=== PATIENT | female | born 1940 | race Caucasian/White ===

== ENCOUNTER 2017-04-07 08:33 | Day surgery (SDC) | payer OTHER ==
--- NOTE | ~2017-04-07 | EGD ---
EGD REPORT [facility] [address] [place] [address] NAME: BRITTANY SORIA : [birth year] STATUS : REG [facility] PAT#: [id number] AGE: 76 ADM/REG DATE : 04/07/17 MR#: [id number] REPORT SERV DATE: 04/07/17 DICTATED BY: CAROL BORJA DATE: 04/07/17 REPORT STATUS : Draft [facility]ANS[facility]: [facility] DATE: 04/07/17 Endoscopy Center Patient Name: Brittany Soria Date of : 1940 Attending MD: CAROL BORJA MD Procedure Date No Time: 04/07/2017 Procedure: Colonoscopy Indications: Personal history of malignant neoplasm of the breast, Weight loss Referring MD: Yakelin Moran Medicines: Propofol per Anesthesia Complications: No immediate complications. Estimated blood loss: None. Procedure: Pre-Anesthesia Assessment: - After reviewing the risks and benefits, the patient was deemed in satisfactory condition to undergo the procedure. - Prior to the procedure, a History and Physical was performed, and patient medications and allergies were reviewed. The patient's tolerance of previous anesthesia was also reviewed. The risks and benefits of the procedure and the sedation options and risks were discussed with the patient. All questions were answered, and informed consent was obtained. Prior Anticoagulants: The patient has taken no previous anticoagulant or antiplatelet agents. ASA Grade Assessment: III - A patient with severe systemic disease. After reviewing the risks and benefits, the patient was deemed in satisfactory condition to undergo the procedure. After I obtained informed consent, the scope was passed under direct vision. Throughout the procedure, the patient's blood pressure, pulse, and oxygen saturations were monitored continuously. The CF [id number] was introduced through the anus and advanced to the cecum, identified by appendiceal orifice and ileocecal valve. The colonoscopy was performed without difficulty. The appendiceal orifice was photographed. The patient tolerated the procedure well. The quality of the bowel preparation was adequate. The bowel preparation used was an extended prep with SUPREP and magnesium citrate. Scope withdrawal time was greater than 9 minutes. Findings: The perianal and digital rectal examinations were normal. Pertinent negatives include normal sphincter tone. Non-bleeding internal hemorrhoids were found during retroflexion and EGD REPORT [address] [address] NAME: BRITTANY SORIA : [birth year] STATUS : REG [facility] PAT#: [id number] AGE: 76 ADM/REG DATE : 04/07/17 MR#: [id number] REPORT SERV DATE: 04/07/17 DICTATED BY: CAROL BORJA DATE: 04/07/17 REPORT STATUS : Draft TRANSCRIBED BY: [employer] DATE: 04/07/17 were small and Grade I (internal hemorrhoids that do not prolapse). A few small-mouthed diverticula were found in the sigmoid colon. The exam was otherwise without abnormality. Impression: - Non-bleeding internal hemorrhoids. - Mild diverticulosis in the sigmoid colon. - The examination was otherwise normal. Recommendation: - Discharge patient to home (ambulatory). - Return to previous diet. - Continue present medications. - Repeat colonoscopy will not be performed due to advanced age. - Return to GI clinic PRN. - Patient has a contact number available for emergencies. The signs and symptoms of potential delayed complications were discussed with the patient. Return to normal activities tomorrow. Written discharge instructions were provided to the patient. Procedure Code(s): --- Professional --- 90573, Colonoscopy, flexible, proximal to splenic flexure; diagnostic, with or without collection of specimen(s) by brushing or washing, with or without colon decompression (separate procedure) Diagnosis Code(s): --- Professional --- K64.0, First degree hemorrhoids K57.30, Diverticulosis of large intestine without perforation or abscess without bleeding Z85.3, Personal history of malignant neoplasm of breast R63.4, Abnormal weight loss CPT copyright 2013 [employer]. All rights reserved. The codes documented in this report are preliminary and upon cpc review may be revised to meet current compliance requirements. CAROL BORJA MD 04/07/2017 11:52 AM This report has been signed electronically. Number of Addenda: 0 Note Initiated On: 04/07/2017 11:09 AM Scope Withdrawal Time 0 hours 9 minutes 12 seconds EGD REPORT [facility] [address] [address] NAME: BRITTANY SORIA : [birth year] STATUS : REG [facility] PAT#: [id number] AGE: 76 ADM/REG DATE : 04/07/17 MR#: [id number] REPORT SERV DATE: 04/07/17 DICTATED BY: CAROL BORJA. DATE: 04/07/17 REPORT STATUS : Draft TRANSCRIBED BY: [employer] DATE: 04/07/17 [address] [address]
--- NOTE | ~2017-04-07 | EGD ---
EGD REPORT [facility] [address] [address] NAME: BRITTANY SORIA : [birth year] STATUS : REG [facility] [place] PAT#: [id number] AGE: 76 ADM/REG DATE : 04/07/17 MR#: [id number] REPORT SERV DATE: 04/07/17 DICTATED BY: CAROL BORJA DATE: 04/07/17 REPORT STATUS : Draft [facility]: [facility] DATE: 04/07/17 Endoscopy Center Patient Name: Brittany Soria Date of : 1940 Attending MD: CAROL BORJA MD Procedure Date No Time: 04/07/2017 Procedure: Upper GI endoscopy Indications: Epigastric abdominal pain, Gastro-esophageal reflux disease Referring MD: Yakelin Moran Medicines: Propofol per Anesthesia Complications: No immediate complications. Estimated blood loss: None. Procedure: Pre-Anesthesia Assessment: - After reviewing the risks and benefits, the patient was deemed in satisfactory condition to undergo the procedure. - Prior to the procedure, a History and Physical was performed, and patient medications and allergies were reviewed. The patient's tolerance of previous anesthesia was also reviewed. The risks and benefits of the procedure and the sedation options and risks were discussed with the patient. All questions were answered, and informed consent was obtained. Prior Anticoagulants: The patient has taken no previous anticoagulant or antiplatelet agents. ASA Grade Assessment: III - A patient with severe systemic disease. After reviewing the risks and benefits, the patient was deemed in satisfactory condition to undergo the procedure. After obtaining informed consent, the endoscope was passed under direct vision. Throughout the procedure, the patient's blood pressure, pulse, and oxygen saturations were monitored continuously. The GIF [id number] was introduced through the mouth, and advanced to the third part of duodenum. The upper GI endoscopy was accomplished without difficulty. The patient tolerated the procedure well. Findings: Diffuse moderate erythema was found in the lower third of the esophagus. Diffuse moderate inflammation characterized by congestion (edema) and granularity was found in the gastric antrum. Biopsies were taken with a cold forceps for histology. Estimated blood loss: none. The gastroesophageal junction (on retroflexion) was normal. The examined duodenum was normal. EGD REPORT [address] [address] NAME: BRITTANY SORIA : [birth year] STATUS : REG [facility] [place] PAT#: [id number] AGE: 76 ADM/REG DATE : 04/07/17 MR#: [id number] REPORT SERV DATE: 04/07/17 DICTATED BY: CAROL BORJA DATE: 04/07/17 REPORT STATUS : Draft TRANSCRIBED BY: [employer] DATE: 04/07/17 Impression: - Erythema in the lower third of the esophagus. - Bile gastritis. Biopsied. - Normal gastroesophageal junction. - Normal examined duodenum. - Non-erosive esophageal reflux (NERD) disease present. Recommendation: - Discharge patient to home (ambulatory). - Return to previous diet. - Continue present medications including Nexium (esomeprazole) 40 mg each morning before breakfast. - Begin Pepcid AC 10 mg 1-2 in the evening as needed for breakthrough heartburn or upper abdominal pain. - Await pathology results. - Perform a colonoscopy today. - Patient has a contact number available for emergencies. The signs and symptoms of potential delayed complications were discussed with the patient. Return to normal activities tomorrow. Written discharge instructions were provided to the patient. Procedure Code(s): --- Professional --- 77666, Esophagogastroduodenoscopy, flexible, transoral; with biopsy, single or multiple Diagnosis Code(s): --- Professional --- K22.9, Disease of esophagus, unspecified K29.60, Other gastritis without bleeding K21.9, Gastro-esophageal reflux disease without esophagitis R10.13, Epigastric pain CPT copyright 2013 [employer]. All rights reserved. The codes documented in this report are preliminary and upon obstetrics gyn physician review may be revised to meet current compliance requirements. CAROL BORJA MD 04/07/2017 11:31 AM This report has been signed electronically. Number of Addenda: 0 Note Initiated On: 04/07/2017 11:12 AM Scope Withdrawal Time 0 hours 0 minutes 0 seconds [address] [address]
[~2017-04-07 08:33] MED LIST: 8 HOUR650 MG PO; ADVICOR1 TAB PO; ARIMIDEX1 PO; ASAB PO; BACTROINT TOP; BONIVA150 MG PO; CORDARONE PO; COREG6 PO; COREGCR40 PO; DITRO5 PO; IMDUR30 PO; K500 PO; LAM250 PO; MCZ25 PO; NEXIUM40 PO; NIACIN 500 PO; NITROQUICK0.4 MG SL; OS500+D PO; PCET PO; PRAVACHOL40 MG PO; PRAVACHOL80 MG PO; PRIN10 PO; PRIN5 PO; SEPTRA DS1 TAB PO; SLO-NIACIN500 MG PO; SYN.025B PO; SYNTHROID200 MCG PO; TAMOXIFEN20 M1 PO; TYLENOL ARTH650 MG PO; TYLENOL PM PO; VITAMIN B-122500 MCG SL; VITAMIN B-1500 MG PO; VITAMIN D31000 UNIT PO; ZOFRAN4 PO
== END 2017-04-07 23:59 | disposition home or self-care (01) ==
LOC: DMU 08:33
PROVIDERS: Internal Medicine Gastroenterology
PROC: 0DB68ZX Excision of Stomach, Via Natural or Artificial Opening Endoscopic, Diagnostic (ICD-10-PCS; principal; 2017-04-07 10:15)
PROC: 0DJD8ZZ Inspection of Lower Intestinal Tract, Via Natural or Artificial Opening Endoscopic (ICD-10-PCS; 2017-04-07 10:15)
DX: K29.70 Gastritis, unspecified, without bleeding (principal); K21.9 Gastro-esophageal reflux disease without esophagitis; K64.0 First degree hemorrhoids; K57.30 Diverticulosis of large intestine without perforation or abscess without bleeding; I25.10 Atherosclerotic heart disease of native coronary artery without angina pectoris; I10 Essential (primary) hypertension; I25.2 Old myocardial infarction; I44.7 Left bundle-branch block, unspecified; E78.5 Hyperlipidemia, unspecified; E03.9 Hypothyroidism, unspecified; E78.00 Pure hypercholesterolemia, unspecified; Z88.1 Allergy status to other antibiotic agents; Z88.8 Allergy status to other drugs, medicaments and biological substances; Z90.49 Acquired absence of other specified parts of digestive tract; Z90.710 Acquired absence of both cervix and uterus; Z96.652 Presence of left artificial knee joint; Z95.5 Presence of coronary angioplasty implant and graft; Z95.0 Presence of cardiac pacemaker; Z96.1 Presence of intraocular lens; Z98.41 Cataract extraction status, right eye; Z98.42 Cataract extraction status, left eye; Z85.3 Personal history of malignant neoplasm of breast; Z92.3 Personal history of irradiation; Z79.82 Long term (current) use of aspirin; Z79.899 Other long term (current) drug therapy; Z98.890 Other specified postprocedural states
CPT/HCPCS: 88305; J2370